=== PATIENT | female | born 1955 | race Caucasian/White ===

== ENCOUNTER → 2016-06-01 | Day surgery (SDC) | payer BC ==
[~2016-06-01] VITALS: Ht 165.1 cm; Wt 65.7 kg
[~2016-06-01] MED LIST: BUPIVACAINE HCL PF 0.5% 30 ML VIAL NERV BLOCK ONE; BUTA1CAP PO; DEXT 5%-NACL 0.45% 1000 ML INJ 1,000 ML IV SCH; FLUO1CRE3 TOPICAL; IBUP800T23 PO; LACTATED RINGER'S 1000 ML INJ 1,000 ML IV ONE; LACTATED RINGER'S 1000 ML INJ 1,000 ML ONE; LEVOTAB PO; LISI-515 PO; MIDAZOLAM HCL 5 MG/ML VIAL (1 ML) ONE; MONT10TA2 PO; PHENYLEPH/NS 1000 MCG/10 ML SYR IV ONE; SIMV40TA PO; SODIUM CHLORIDE 0.9% FLUSH 5 ML FLUSH IVF PRN; SODIUM CHLORIDE 0.9% FLUSH 5 ML FLUSH IVF SCH; SYNT88TA PO; TRIA.1%T TOPICAL; ceFAZolin 2 GM PREMIX 50 ML ONE; ePHEDrine/NS 25 MG/5 ML SYR IV ONE; fentaNYL CITRATE 250 MCG/5 ML AMP ONE
[2016-06-01 09:15] VITALS: BP 153/90; PULSE 77; RESP 18; TEMP 97.8; O2SAT 95
[2016-06-01 10:08] LABS: HEMATOCRIT 41.6 % (35.0-46.0); MEAN CORPUSCULAR HEMOGLOBIN 35.4 PG (27.0-34.0); MEAN CORPUSCULAR HGB CONC 34.7 % (32.0-36.0); PLATELET COUNT 188 TH/MM3 (150-450); RED BLOOD COUNT 4.08 MIL/MM3 (4.00-5.30); RED CELL DISTRIBUTION WIDTH 11.5 % (11.6-17.2); REVIEW FLAG FINAL; WHITE BLOOD COUNT 7.7 TH/MM3 (4.0-11.0)
--- NOTE | 2016-06-01 10:21 | HP.UPD ---
H&P Update Date: Jun 01, 2016 Note The Pre-Admit History and Physical Examination regarding the above named patient was reviewed (including, but not limited to, vital signs, medications, allergies, co-morbid conditions), and upon re-examination it is noted that: Indicated with "X" x - the patient's condition has not significantly changed since the last examination. [] - the patient's condition has changed since the last examination. Changes: Emmanuelle Santana MD Jun 01, 2016 10:20
--- NOTE | 2016-06-01 12:47 | HHI.PR ---
Immediate Post Op Note Procedure Date: Jun 01, 2016 Pre Op Diagnosis: (1) Primary osteoarthritis of right wrist Post Op Diagnosis: (1) Primary osteoarthritis of right wrist Surgeon: Emmanuelle Santana Trench Pipe Layer(s): None Procedure: Interposition arthroplasty of the right thumb CMC joint with tendon transfer. Anesthesia: General Drains: None Tourniquet time (min at mmHg) 59 minutes at 220 mm Hg Patient to: PACU Patient Condition: Good Date/Time of Procedure: SEE SURGICAL CARE RECORD Emmanuelle Santana MD Jun 01, 2016 12:47
--- NOTE | 2016-06-01 13:39 | MP ---
cc: SELVIN ROSS M.D. 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 PROCEDURE 1. Interposition arthroplasty of the right thumb CMC joint. 2. Tendon transfer to the right thumb CMC joint. ANESTHESIA General. SURGEON Selvin Ross MD INDICATIONS A 60-year-old female with severe degenerative joint disease of the right thumb CMC joint. FINDINGS At the completion of the procedure the carpal trapezium had been removed and the thumb suspended with 50% portion of the flexor carpi radialis. TOURNIQUET TIME 59 minutes. PROCEDURE The patient was seen preoperatively where the site and side were identified and marked. The patient was then taken to the operating room, placed in a supine position. Her identity was checked against the arm band and the consent form, site and side confirmed, time-out called prior to beginning the procedure. The right upper extremity was prepped with Hibiclens and draped in the usual sterile fashion. The area to be incised was outlined with a marking pen as a transverse incision over the base of the right thumb. In addition, a transverse incision was designed in the most distal volar portion of the flexor carpi radialis in the wrist and 10 cm proximal to this. The arm was exsanguinated and the tourniquet inflated to 220 mmHg. A #15 blade was used to make an incision over the base of the thumb, down through the skin, down to the subcutaneous tissue. Under loupe magnification using spread technique, superficial vessels and nerves were identified and retracted exposing the capsule. The tendons were retracted. An incision was made into the capsule and, using a 4-mm osteotome, ligamentous attachments at the trapezium were carefully removed and . The bone was then removed in piecemeal using a rongeur. The volar base of the metacarpal was then removed with a rongeur and a 4-mm hole was drilled using sequentially larger drill bits at the dorsal aspect of the metacarpal into the wound. The area was then copiously irrigated with saline. A new 15 blade was used to make a transverse incision at the most distal portion of the flexor carpi radialis and the wrist and another incision 10 cm proximal to this. The tendon was dissected out of both areas. The sheath was opened distally at the distal incision both proximal and distal to this and the tendon was isolated proximally, from the muscle. A new 15 blade was then used to incise the ulnar 50% of the flexor carpi radialis and a tendon passer was used to pass this distally into the distal wound and then it was passed using a baby Mixter into the main wound and the fibers were using the baby Mixter all the way to the insertion at the base of the index metacarpal. A Hussen passer was then used to pass the tendon through the base of the metacarpal through a hole that had been drilled and the thumb was then pulled distally, adducted to the index metacarpal and sewn upon itself using 3-0 Ethibond suture material. The remainder of the tendon was then wrapped around itself and secured in place with the 3-0 Ethibond suture material. Excellent stability was noted. The wound was irrigated and the capsule was closed with a 3-0 Ethibond suture material. 4-0 Vicryl was used to close the dermal layer to the thumb incision and the remainder of the wound and the remainder of the wounds were all then closed with Dermabond. Once the glue had dried in several layers, Steri-Strips were applied. The tourniquet was then released after 59 minutes of tourniquet time. Pressure was applied. After several minutes there is no evidence of any oozing or swelling and a dressing was applied using fluffy gauze hand wrap and a thumb spica splint. The patient was then taken from the operating room to recovery room in satisfactory condition having tolerated the procedure well. Postoperative instructions include keeping the arm elevated, keeping the area clean and dry and returning next week for follow up. The patient was given a prescription for ibuprofen 100 mg. MD MALIK Davis/SAMY /12:54 PM /1:27 PM
[2016-06-01 14:20] VITALS: BP 105/69; PULSE 84; RESP 16; TEMP 98.4; O2SAT 95
--- NOTE | 2016-06-01 16:01 | EKG ---
Date Performed: 06/01/2016 Time Performed: 09:41:38 PTAGE: 60 years EKG: Sinus rhythm rSr'(V1) - probable normal variant Normal ECG NO PREVIOUS TRACING DOCTOR: Lev Renee Interpretating Date/Time 06/01/2016 16:00:35
== END | disposition home or self-care (01) ==
LOC: PHSDC 08:27
PROVIDERS: ATTEND Specialist
DX: M18.11 Unilateral primary osteoarthritis of first carpometacarpal joint, right hand (principal); I10 Essential (primary) hypertension; E78.5 Hyperlipidemia, unspecified; J45.909 Unspecified asthma, uncomplicated
CPT/HCPCS: 01830; 25310; 25447; 36415; 64450; 85027; 93005; J0690; J2250; J2370; J3010; J7120